=== PATIENT | female | born 1945 | race Caucasian/White ===

== ENCOUNTER 2019-01-04 12:51 | Emergency (ER) | payer MEDICARE ==
[~2019-01-04] VITALS: Ht 172.7 cm; Wt 70.3 kg
[~2019-01-04 12:51] MED LIST: AMLO5TAB4 PO; CELE200C PO; CIPR250T30 PO; CRESTOR10 MG PO; CYCL7.5T PO; DULO60CA6 PO; ESOM40CA25 PO; FERR325T14 PO; HYDR-2680 PO; HYDR-3164 PO; LORA2TAB PO; LOSA100T14 PO; OLME40TA12 PO; ONDA4TAB7 PO; OXYC10TA46 PO; OXYC1TAB6 PO; Oxycodone Hcl/Acetaminophen PO; PANT20TA2 PO; POLY17PO29 PO; PROC10TA57 PO; SUCR1TAB35 PO; TRAZ-118 PO; WARF-78 PO; WARF6TAB47 PO; Warfarin Sodium MC; ZOLP10TA4 PO; ZOLP6.252 PO
[2019-01-04] MEDS ORDERED: MORPHINE SULFATE 4 MG/ML VIAL. IV ONE ×2 (14:15)
[2019-01-04] MEDS ORDERED: ONDANSETRON PF 4 MG/2 ML VIAL. IV ONE (14:15)
[2019-01-04 14:22] LABS: BASO # 0.1 x10^3/uL (0.0-0.2); BASO % 1 % (0-3); EOS # 0.1 x10^3/uL (0.0-0.7); EOS % 1 % (0-3); HEMATOCRIT 38.2 % (36.0-47.0); HEMOGLOBIN 13.3 g/dL (12.0-15.5); LYMPH # 2.8 x10^3/uL (1.0-4.8); LYMPH % 36 % (24-48); MEAN CORPUSCULAR HEMOGLOBIN 32 pg (25-35); MEAN CORPUSCULAR HGB CONC 35 g/dL (31-37); MEAN CORPUSCULAR VOLUME 91 fL (79-100); MONO # 0.5 x10^3/uL (0.0-1.1); MONO % 6 % (0-9); NEUT # 4.5 x10^3/uL (1.8-7.7); NEUT % 56 % (31-73); PLATELET COUNT 469 x10^3/uL (140-400); RED BLOOD COUNT 4.21 x10^6/uL (3.50-5.40); RED CELL DISTRIBUTION WIDTH 12.4 % (11.5-14.5)
[2019-01-04 14:24] LABS: BILIRUBIN,URINE NEGATIVE (NEG); CLARITY,URINE CLEAR; COLOR,URINE YELLOW; NITRITE,URINE NEGATIVE (NEG); PH,URINE 5.5; PROTEIN,URINE NEGATIVE (NEG-TRACE); UROBILINOGEN,URINE 0.2 mg/dL (0.2 mg/dL)
[2019-01-04 14:36] LABS: CALCIUM 9.9 mg/dL (8.5-10.1); CREATININE 0.5 mg/dL (0.6-1.0); GFR 121.3; POTASSIUM 4.1 mmol/L (3.5-5.1)
[2019-01-04 14:38] LABS: ALBUMIN 4.7 g/dL (3.4-5.0); ALBUMIN/GLOBULIN RATIO 1.6 (1.0-1.7); TOTAL BILIRUBIN 0.5 mg/dL (0.2-1.0); TOTAL PROTEIN 7.7 g/dL (6.4-8.2)
[2019-01-04 14:45] LABS: BACTERIA,URINE 0 /HPF (0-FEW); RBC,URINE 0 /HPF (0-2); SQUAMOUS EPITHELIAL CELL,UR OCC /LPF; WBC,URINE 0 /HPF (0-4)
[2019-01-04] MEDS ORDERED: CONTRAST GIVEN. MC PRN (15:30)
[2019-01-04] MEDS ORDERED: IOHEXOL 300 MG/ML 100ML VIAL. IV ONE (16:00)
--- NOTE | 2019-01-04 16:07 | RAD ---
Exam: CT abdomen and pelvis with IV contrast INDICATION: Abdominal pain TECHNIQUE: Sequential axial images through the abdomen and pelvis obtained following the administration of 75 mL of Omni view 300 IV contrast. Sagittal and coronal reformatted images were reconstructed from the axial data and reviewed. Comparisons: MRI abdomen November 30, 2018 FINDINGS: Heart size is normal. No pericardial effusion. Visualized lung bases are clear. No pleural effusion. Liver, pancreas, gallbladder and adrenals. Several calcified granulomata noted within the spleen. No perinephric inflammation or hydronephrosis. Several small bilateral renal calculi are noted, largest in the lower pole of the right kidney measuring 6 mm. No ureteral calculi are identified. Bladder is distended and appears thin-walled. Uterus is absent. No abnormal adnexal mass. Postsurgical changes of the rectum are again noted. Visualized portions of the large and small bowel are otherwise unremarkable. No obstruction. No free intra-abdominal air fluid. Abdominal aorta has normal course and caliber. No enlarged abdominal lymph nodes are identified. Sclerotic appearance of the left pubic symphysis with enlarged trabecula. No suspicious osseous lesions or acute fractures. IMPRESSION: 1. No acute process identified within the abdomen or pelvis to explain patient's pain. 2. Stable nephrolithiasis. No evidence for obstructive uropathy. 3. Stable sclerotic lesion at the left pubic symphysis. Exposure: One or more of the following in the visualized dose reduction techniques were utilized for this examination: 1. Automated exposure control 2. Adjustment of the MA and/or KV according to patient size 3. Use of iterative of reconstructive technique Electronically signed by: Mikayla Dominique MD (01/04/2019 4:04 PM) [facility]
[2019-01-04] MEDS ORDERED: IV NORMAL SALINE 1000ML BAG 1,000 ML IV ONE (16:30)
--- NOTE | 2019-01-04 16:44 | PHYS DOC ---
Past Medical History Past Medical History: Cancer, High Cholesterol, Hypertension Additional Past Medical Histor: H. Pylori, colon cancer, osteoarthritis, bowel obstruction Past Surgical History: Cholecystectomy, Colectomy, Hysterectomy, Knee Replacement, Tonsillectomy Additional Past Surgical Histo: hernia repair x 2 Alcohol Use: None Drug Use: None Adult General Chief Complaint Chief Complaint: WEAKNESS/GENERALIZED HPI HPI Patient is a 73 year old male presented to ER today for evaluation of her pain for several weeks. Patient was admitted here last month for the same problem, she had a gallbladder taken out and she was admitted due to pain, or found to be Constipation due to narcotics. Patient had a colonoscopy and EGD done by her GI doctor in August of this year and it was normal. She felt nauseous. Patient is currently on narcotic for pain control. SHe denies any fever, no chest pain, no trouble breathing. Review of Systems Review of Systems Constitutional: Denies fever or chills [] Eyes: Denies change in visual acuity, redness, or eye pain [] HENT: Denies nasal congestion or sore throat [] Respiratory: Denies cough or shortness of breath [] Cardiovascular: No additional information not addressed in HPI [] GI: Positive for abdominal pain, nausea, vomiting, NO bloody stools or diarrhea [] : Denies dysuria or hematuria [] Musculoskeletal: Denies back pain or joint pain [] Integument: Denies rash or skin lesions [] Neurologic: Denies headache, focal weakness or sensory changes [] Endocrine: Denies polyuria or polydipsia [] All other systems were reviewed and found to be within normal limits, except as documented in this note. Current Medications Current Medications Current Medications Medications (Trade) Dose Ordered Sig/Romina Start Time Stop Time Status Last Admin Dose Admin Info (CONTRAST GIVEN -- Rx MONITORING) 1 each PRN DAILY PRN 01/04/19 15:30 01/06/19 15:29 Iohexol (Omnipaque 300 Mg/ml) 100 ml 1X ONCE 01/04/19 16:00 01/04/19 16:01 DC 01/04/19 15:52 100 ML Morphine Sulfate (Morphine Sulfate) 4 mg 1X ONCE 01/04/19 14:15 01/04/19 14:19 DC 01/04/19 15:20 4 MG Ondansetron HCl (Zofran) 4 mg 1X ONCE 01/04/19 14:15 01/04/19 14:16 DC 01/04/19 14:17 4 MG Sodium Chloride 1,000 ml @ 1,000 mls/hr 1X ONCE 01/04/19 16:30 01/04/19 17:29 01/04/19 16:33 1,000 MLS/HR Allergies Allergies Allergies Coded Allergies Type Severity Reaction Last Updated Verified simvastatin Allergy Intermediate 11/16/18 Yes Physical Exam Physical Exam Constitutional: Well developed, well nourished, no acute distress, non-toxic appearance. [] HENT: Normocephalic, atraumatic, bilateral external ears normal, oropharynx moist, no oral exudates, nose normal. [] Eyes: PERRLA, EOMI, conjunctiva normal, no discharge. [] Neck: Normal range of motion, no tenderness, supple, no stridor. [] Cardiovascular:Heart rate regular rhythm, no murmur [] Lungs & Thorax: Bilateral breath sounds clear to auscultation [] Abdomen: Bowel sounds normal, soft, There is lower tenderness to palpation, no masses, no pulsatile masses. [] Skin: Warm, dry, no erythema, no rash. [] Back: No tenderness, no CVA tenderness. [] Extremities: No tenderness, no cyanosis, no clubbing, ROM intact, no edema. [] Neurologic: Alert and oriented X 3, normal motor function, normal sensory function, no focal deficits noted. [] Psychologic: Affect normal, judgement normal, mood normal. [] Current Patient Data Vital Signs Vital Signs Date Time Temp Pulse Resp B/P (MAP) Pulse Ox O2 Delivery O2 Flow Rate FiO2 01/04/19 16:35 89 18 87 01/04/19 15:20 Room Air 01/04/19 13:35 99.0 162/77 (105) 99.0 Lab Values Laboratory Tests Test 01/04/19 13:15 01/04/19 13:50 Urine Collection Type Unknown Urine Color Yellow Urine Clarity Clear Urine pH 5.5 Urine Specific [place] <=1.005 Urine Protein Negative mg/dL (NEG-TRACE) Urine Glucose (UA) Negative mg/dL (NEG) Urine Ketones (Stick) Negative mg/dL (NEG) Urine Blood Small (NEG) Urine Nitrite Negative (NEG) Urine Bilirubin Negative (NEG) Urine Urobilinogen Dipstick 0.2 mg/dL (0.2 mg/dL) Urine Leukocyte Esterase Negative (NEG) Urine RBC 0 /HPF (0-2) Urine WBC 0 /HPF (0-4) Urine Squamous Epithelial Cells Occ /LPF Urine Bacteria 0 /HPF (0-FEW) White Blood Count 8.0 x10^3/uL (4.0-11.0) Red Blood Count 4.21 x10^6/uL (3.50-5.40) Hemoglobin 13.3 g/dL (12.0-15.5) Hematocrit 38.2 % (36.0-47.0) Mean Corpuscular Volume 91 fL (79-100) Mean Corpuscular Hemoglobin 32 pg (25-35) Mean Corpuscular Hemoglobin Concent 35 g/dL (31-37) Red Cell Distribution Width 12.4 % (11.5-14.5) Platelet Count 469 x10^3/uL (140-400) H Neutrophils (%) (Auto) 56 % (31-73) Lymphocytes (%) (Auto) 36 % (24-48) Monocytes (%) (Auto) 6 % (0-9) Eosinophils (%) (Auto) 1 % (0-3) Basophils (%) (Auto) 1 % (0-3) Neutrophils # (Auto) 4.5 x10^3/uL (1.8-7.7) Lymphocytes # (Auto) 2.8 x10^3/uL (1.0-4.8) Monocytes # (Auto) 0.5 x10^3/uL (0.0-1.1) Eosinophils # (Auto) 0.1 x10^3/uL (0.0-0.7) Basophils # (Auto) 0.1 x10^3/uL (0.0-0.2) Sodium Level 123 mmol/L (136-145) L Potassium Level 4.1 mmol/L (3.5-5.1) Chloride Level 86 mmol/L (98-107) L Carbon Dioxide Level 24 mmol/L (21-32) Anion Gap 13 (6-14) Blood Urea Nitrogen 6 mg/dL (7-20) L Creatinine 0.5 mg/dL (0.6-1.0) L Estimated GFR (Cockcroft-Gault) 121.3 BUN/Creatinine Ratio 12 (6-20) Glucose Level 95 mg/dL (70-99) Calcium Level 9.9 mg/dL (8.5-10.1) Total Bilirubin 0.5 mg/dL (0.2-1.0) Aspartate Amino Transferase (AST) 26 U/L (15-37) Alanine Aminotransferase (ALT) 28 U/L (14-59) Alkaline Phosphatase 96 U/L (46-116) Total Protein 7.7 g/dL (6.4-8.2) Albumin 4.7 g/dL (3.4-5.0) Albumin/Globulin Ratio 1.6 (1.0-1.7) Lipase 68 U/L (73-393) L Laboratory Tests 01/04/19 13:50 Laboratory Tests 01/04/19 13:50 EKG EKG [] Radiology/Procedures Radiology/Procedures [][facility] [address] [place] [address] IMAGING REPORT Signed PATIENT: JUAN DANIEL ABDI ACCOUNT: [id number] : 1945 LOCATION: [address] [place] [address] AGE: 72 SEX: F EXAM STATUS: ADM IN ORD. PHYSICIAN: LAMAR VAUGHAN MD REASON: chronic upper abd pain, weight loss, unexplained pain after multiple tests PROCEDURE: CT ANGIOGRAPHY ABD AND PELVIS ADDENDUM Addendum: 9 mm small left adrenal nodule is again identified. Electronically signed by: Renato Akins MD (12/01/2018 9:47 AM) [facility] DICTATED AND SIGNED BY: RENATO AKINS MD DATE: 12/01/18 0947 CC: LAMAR VAUGHAN MD; BARRERA RODGERS MD; LNIO SUAZO MD ~ Examination: CT angiography abdomen pelvis HISTORY: History of upper abdominal pain, weight loss COMPARISON: CT of the abdomen pelvis from 11/16/2018 TECHNIQUE: Axial CT angiography images of the abdomen pelvis were performed with IV contrast. Coronal and sagittal 3-D MIP reformats are performed. Volumetric 3-D reformats of the abdominal aorta was performed. Exposure: One or more of the following individualized dose reduction techniques were utilized for this examination: 1. Automated exposure control 2. Adjustment of the mA and/or kV according to patient size 3. Use of iterative reconstruction technique FINDINGS: The bibasilar lungs are clear. No evidence of free air identified in the abdomen. The visualized liver, spleen demonstrates a few calcified granulomas. The gallbladder is mildly distended. The stomach is mildly distended. The visualized pancreas grossly appears unremarkable. The small bowel is nondilated. Moderate amount of feces and gas noted throughout the colon. Surgical changes identified in the distal colon region. No evidence of abdominal aortic aneurysm identified. Moderate aortic atherosclerosis. The celiac artery, superior mesenteric artery, inferior mesenteric artery are patent. The bilateral common iliac arteries, external and internal iliac arteries are patent. Moderate atherosclerotic calcification is identified in the bilateral internal iliac arteries and the abdominal aorta. The bilateral kidneys enhance symmetrically. Mild atherosclerotic calcifications identified at the origin of the right renal artery. 2 left renal arteries identified. Small cystic structures identified in the bilateral kidneys probably cysts. Punctate intrarenal collecting system calculi identified in the bilateral kidneys the largest measuring 8 mm on the right. Sclerotic density identified in the region of the left pubic bone and the superior left pubic ramus similar to prior exam. Moderate degenerative changes lumbar spine. IMPRESSION: 1. No evidence of abdominal aortic aneurysm. The celiac artery, superior mesenteric artery, inferior mesenteric artery and the bilateral renal arteries are patent. 2. Bilateral nephrolithiasis. 2. Sclerotic density identified in the left pubic bone and superior pubic ramus similar to prior exam could be Paget's disease or metastatic lesion. Bone scan follow-up can be considered. Electronically signed by: Renato Akins MD (12/01/2018 9:40 AM) [facility] DICTATED and SIGNED BY: RENATO AKINS MD DATE: 12/01/18 0940 Course & Med Decision Making Course & Med Decision Making Pertinent Labs and Imaging studies reviewed. (See chart for details) [] Dragon Disclaimer Dragon Disclaimer This electronic medical record was generated, in whole or in part, using a voice recognition dictation system. Departure Departure Impression: Primary Impression: Abdominal pain Disposition: 01 HOME, SELF-CARE Condition: STABLE Referrals: LAMAR VAUGHAN MD (PCP) FOLLOW UP WITH YOUR DOCTOR NEXT WEEK. Patient Instructions: Abdominal Pain LADONNA PALACIOS DO Jan 04, 2019 16:44
[2019-01-04 17:36] VITALS: BP 163/74
== END 2019-01-04 17:50 | disposition home or self-care (01) ==
LOC: ER 12:51
DX: R10.30 Lower abdominal pain, unspecified (principal); R11.2 Nausea with vomiting, unspecified; E78.00 Pure hypercholesterolemia, unspecified; I10 Essential (primary) hypertension; Z90.710 Acquired absence of both cervix and uterus; Z90.49 Acquired absence of other specified parts of digestive tract; Z90.89 Acquired absence of other organs; Z96.659 Presence of unspecified artificial knee joint; Z88.8 Allergy status to other drugs, medicaments and biological substances
CPT/HCPCS: 36415; 74177; 80053; 81001; 83690; 85025; 96361; 96374; 96375; 96376; 99285; J2270; J2405; J7030; Q9967

== ENCOUNTER 2020-12-26 11:26 | Emergency (ER) | payer OTHER, MEDICARE ==
[~2020-12-26] VITALS: Ht 172.7 cm; Wt 79.5 kg
[~2020-12-26 11:26] MED LIST changes: -WARF-78 PO; +WARF5TAB2 PO
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
[2020-12-26 13:00] LABS: BASO # 0.1 x10^3/uL (0.0-0.2); BASO % 1 % (0-3); EOS # 0.1 x10^3/uL (0.0-0.7); EOS % 1 % (0-3); HEMATOCRIT 43.1 % (36.0-47.0); HEMOGLOBIN 14.7 g/dL (12.0-15.5); LYMPH # 2.5 x10^3/uL (1.0-4.8); LYMPH % 29 % (24-48); MEAN CORPUSCULAR HEMOGLOBIN 32 pg (25-35); MEAN CORPUSCULAR HGB CONC 34 g/dL (31-37); MEAN CORPUSCULAR VOLUME 92 fL (79-100); MONO # 0.4 x10^3/uL (0.0-1.1); MONO % 4 % (0-9); NEUT # 5.5 x10^3/uL (1.8-7.7); NEUT % 65 % (31-73); PLATELET COUNT 485 x10^3/uL (140-400); RED BLOOD COUNT 4.66 x10^6/uL (3.50-5.40); RED CELL DISTRIBUTION WIDTH 13.3 % (11.5-14.5); WHITE BLOOD COUNT 8.6 x10^3/uL (4.0-11.0)
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
[2020-12-26 13:14] LABS: CALCIUM 9.5 mg/dL (8.5-10.1); CREATININE 0.7 mg/dL (0.6-1.0); GFR 81.8; POTASSIUM 3.9 mmol/L (3.5-5.1)
[2020-12-26 13:19] LABS: ALBUMIN 4.2 g/dL (3.4-5.0); ALBUMIN/GLOBULIN RATIO 1.4 (1.0-1.7); MAGNESIUM 2.1 mg/dL (1.8-2.4); TOTAL BILIRUBIN 0.3 mg/dL (0.2-1.0); TOTAL PROTEIN 7.2 g/dL (6.4-8.2)
--- NOTE | 2020-12-26 13:30 | RAD ---
PQRS Compliance Statement: One or more of the following individualized dose reduction techniques were utilized for this examinat ion: 1. Automated exposure control 2. Adjustment of the mA and/or kV according to patient size 3. Use of iterative reconstruction technique CT head and cervical spine without contrast 12/26/2020 12:03 PM INDICATION: Altered mental status COMPARISON: CT head 11/27/2011 TECHNIQUE: Multiple axial CT images of the head were obtained from skull base through the vertex with out intravenous contrast. Multiple axial CT images of the cervical spine were obtained without intrav enous contrast. Coronal and sagittal reformats are provided. FINDINGS: Head: Evaluation limited by motion. Ventricles, sulci and basal cisterns are within normal limits. There is no hydrocephalus. Carbajal-white matter differentiation is normal. There is no acute intracranial hemorrhage. There is no mass, mass e ffect or midline shift. Posterior fossa is normal in appearance. Visualized portions of the orbits are normal. Paranasal sinuses are well aerated. Mastoid air cells a re well aerated. Scalp and calvaria are normal. Cervical spine: Alignment of the cervical spine is normal. Skull base is intact. Craniocervical junction is normal in appearance. Atlantoaxial articulation is normal. Vertebral body heights are maintained without evidence for acute fracture. There is severe left-sided facet arthropathy at C2-C3. Severe left and moderate right facet arthropat hy at 4 with mild bilateral neuroforaminal stenosis. At C4-C5, there is a posterior disc osteophyte c omplex with moderate to severe bilateral facet arthropathy and mild uncovertebral joint disease resul ting in mild/moderate right and mild left neuroforaminal stenosis. At C5-C6, there is disc bulge with moderate facet arthropathy and mild uncovertebral joint disease resulting in mild bilateral neurofor aminal stenosis. There is moderate to severe facet arthropathy at C6-C7. There is no prevertebral soft tissue swelling. Thyroid gland is normal in appearance. 5 mm subpleural nodular opacity identified within the posterior right upper lobe, only partially profiled. IMPRESSION: 1. No acute intracranial hemorrhage. 2. No acute fracture or malalignment of the cervical spine. Mild cervical spondylosis. 3. 5 mm subpleural nodule identified along the posterior right upper lobe, only partially profiled. F leischner guidelines for incidentally detected pulmonary nodules suggests no routine follow-up for lo w risk patients and optional CT at 12 months for high risk patients with solid noncalcified pulmonary nodules less than 6 mm in size. Electronically signed by: Beatrice Fenton MD (12/26/2020 1:28 PM) [facility]
[2020-12-26] MEDS ORDERED: HYDROcodone/APAP 5/325MG 1 TAB TABLET PO ONE (14:00)
[2020-12-26 14:33] LABS: BILIRUBIN,URINE NEGATIVE (NEG); CLARITY,URINE CLEAR; COLOR,URINE YELLOW; NITRITE,URINE NEGATIVE (NEG); PH,URINE 7.5 (<5.0-8.0); PROTEIN,URINE NEGATIVE (NEG-TRACE)
[2020-12-26 14:46] LABS: BACTERIA,URINE FEW /HPF (0-FEW)
[2020-12-26 15:32] VITALS: BP 131/82
--- NOTE | 2020-12-26 16:35 | EKG ---
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
== END 2020-12-26 15:57 | disposition home or self-care (01) ==
LOC: ER 11:26
DX: R41.82 Altered mental status, unspecified (principal); R55 Syncope and collapse; R07.89 Other chest pain; G89.11 Acute pain due to trauma; E78.00 Pure hypercholesterolemia, unspecified; I10 Essential (primary) hypertension; W18.39XA Other fall on same level, initial encounter; Y93.89 Activity, other specified; Y92.89 Other specified places as the place of occurrence of the external cause; Y99.8 Other external cause status
CPT/HCPCS: 36415; 70450; 71045; 72125; 80053; 81001; 83735; 83880; 84484; 85025; 87086; 93005; 99285-25

== ENCOUNTER 2021-02-16 14:12 | Emergency (ER) | payer MEDICARE ==
[~2021-02-16] VITALS: Ht 167.6 cm; Wt 70.0 kg
--- NOTE | 2021-02-16 15:17 | PHYS DOC ---
Past Medical History Past Medical History: Cancer, High Cholesterol, Hypertension Additional Past Medical Histor: H. Pylori, colon cancer, osteoarthritis, bowel obstruction Past Surgical History: Cholecystectomy, Colectomy, Hysterectomy, Knee Replacement, Tonsillectomy Additional Past Surgical Histo: hernia repair x 2 Smoking Status: Current Every Day Smoker Alcohol Use: Occasionally Drug Use: None General Adult EDM: Chief Complaint: CONSTIPATION HPI: HPI: Patient is a 75 year old female with remote history of stage I colon cancer s/p colon resection, hysterectomy who presents with lower abdominal pain and constipation for 2 weeks. Associated with nausea but no vomiting. She did take a laxative and had a very small soft bowel movement a couple of days ago. Has not had any other bowel movements. No rectal bleeding. No fever/chills. Pain is in bilateral lower abdominal segments. States she has no history of SBO. She had a follow-up colonoscopy at earlier this summer that showed showed a large polyp that was removed. She denies any rectal pressure or pain. Review of Systems: Review of Systems: Constitutional: Denies fever or chills. [] Eyes: Denies change in visual acuity. [] HENT: Denies nasal congestion or sore throat. [] Respiratory: Denies cough or shortness of breath. [] Cardiovascular: Denies chest pain or edema. [] GI: Reports constipation abdominal pain and nausea. [] : Denies dysuria. [] Musculoskeletal: Denies back pain or joint pain. [] Integument: Denies rash. [] Neurologic: Denies headache, focal weakness or sensory changes. [] Endocrine: Denies polyuria or polydipsia. [] Lymphatic: Denies swollen glands. [] Psychiatric: Denies depression or anxiety. [] Heart Score: C/O Chest Pain: N/A Risk Factors: Risk Factors: DM, Current or recent (<one month) smoker, HTN, HLP, family history of CAD, obesity. Risk Scores: Score 0 - 3: 2.5% MACE over next 6 weeks - Discharge Home Score 4 - 6: 20.3% MACE over next 6 weeks - Admit for Clinical Observation Score 7 - 10: 72.7% MACE over next 6 weeks - Early Invasive Strategies Allergies: Allergies: Allergies Coded Allergies Type Severity Reaction Last Updated Verified simvastatin Allergy Intermediate 11/16/18 Yes Physical Exam: PE: Constitutional: Well developed, well nourished, no acute distress, non-toxic appearance. [] HENT: Normocephalic, atraumatic, bilateral external ears normal, oropharynx reynaldo st, no oral exudates, nose normal. [] Eyes: PERRLA, EOMI, conjunctiva normal, no discharge. [] Neck: Normal range of motion, no tenderness, supple, no stridor. [] Cardiovascular:Heart rate regular rhythm, no murmur [] Lungs & Thorax: Bilateral breath sounds clear to auscultation [] Abdomen: Slightly distended abdomen with tenderness in bilateral lower quadrants. Rectal: No stool or masses noted in the rectal vault. No evidence of blood or melena. [] Skin: Warm, dry, no erythema, no rash. [] Back: No tenderness, no CVA tenderness. [] Extremities: No tenderness, no cyanosis, no clubbing, ROM intact, no edema. [] Neurologic: Alert and oriented X 3, normal motor function, normal sensory function, no focal deficits noted. [] Psychologic: Affect normal, judgement normal, mood normal. [] EKG: EKG: [] Radiology/Procedures: Radiology/Procedures: [] Impression: [facility] [address] [place], [place] [id number] IMAGING REPORT Signed PATIENT: JUAN DANIEL ABDI ACCOUNT: [id number] : 1945 LOCATION: ER AGE: 75 SEX: F EXAM STATUS: REG ER ORD. PHYSICIAN: CURTIS HAND MD REASON: constipation, lower abd pain, hx colon ca s/p resction PROCEDURE: CT ABD PELV W/ IV CONTRST ONLY EXAMINATION: CT abdomen and pelvis with IV contrast. INDICATION:75 years, Female, constipation, lower abdominal pain, history of colon cancer, status post resection. TECHNIQUE: Axial CT images of the abdomen and pelvis were obtained. Coronal and sagittal reformatted performed. COMPARISON: 01/04/2019. Exposure: One or more of the following individualized dose reduction techniques were utilized for this examination: 1. Automated exposure control 2. Adjustment of the mA and/or kV according to patient size 3. Use of iterative reconstruction technique. FINDINGS: LOWER CHEST: Unremarkable ABDOMEN/PELVIS: Normal size and morphology of the liver with homogeneous enhancement. Subcentim eter hypodensity in the left hepatic lobe, too small to characterize. Focal fat infiltration adjacent to falciform ligament. Calcified granuloma in the right hepatic lobe. Layering cholelithiasis in the gallbladder. No biliary ductal dilation. Calcified granulomas in the spleen. Mildly atrophic pancreatic parenchyma. No adrenal nodule. No hydronephrosis in either kidney. Redemonstr ated multiple nonobstructing right nephrolithiasis, the largest in the lower pole measures 1.2 cm. Distal esophageal wall thickening, may relate to reflux esophagitis. No bowel obstruction. Normal appendix. Postsurgical changes of sigmoid resection. Extr katharina redundant colon with cecum and ileocecal valve seen within the left abdomen. Large amount of stool throughout the colon. Mild tortuous abdominal aorta with the mild aortoiliac atherosclerotic calcifications. No aortic dilation or narrowing. Mesenteric arteries and portal vein are patent. No pneumoperitoneum or ascites. No lymphadenopathy in the abdomen or pelvis by size criteria. Unremarkable urinary bladder. Uterus is not visualized. No suspicious pelvic masses. MUSCULOSKELETAL: No acute osseous process or suspicious lesion. Grade 1 anterolisthesis of L4 over L5. Multilevel degenerative changes in the spine. Small fat-containing and likely hernia. Similar diffuse cortical thickening with coarse trabeculations involving left pubic and ischial bones, suggesting of Paget changes. IMPRESSION: 1. No acute abnormality in the abdomen or pelvis. 2. Redundant colon with large amount of stool burden. 3. Similar multiple nonobstructing left nephrolithiasis. 4. Other chronic/incidental findings, as described above. Electronically signed by: Brando Kaur MD (02/16/2021 4:52 PM) [id number] DICTATED and SIGNED BY: BRANDO KAUR MD DATE: 02/16/21 [id number] Course & Med Decision Making: Course & Med Decision Making Pertinent Labs and Imaging studies reviewed. (See chart for details) Patient is 75-year-old female with a past surgical history of colon resection for stage I colon cancer, and hysterectomy who presents with 2 weeks of constipation, nausea, and lower abdominal pain. No evidence of rectal impaction on CARMELA. She is slightly distended and tender in the lower quadrants. Will obtain CT imaging to exclude mass/obstruction. 1517 CT shows large stool burden/constipation. No evidence of obstruction or other acute process. Discussed findings with patient. Will increase bowel regimen from MiraLAX 17 g once daily to 34 g twice daily as needed. We will continue her docusate and senna. If the increase MiraLAX does not yield results, she will try mag citrate as the next step. We will follow-up with her PCP Return precautions for worsening pain, fever/chills, or new onset vomiting. [id number] Dragon Disclaimer: Devin Disclaimer: This electronic medical record was generated, in whole or in part, using a voice recognition dictation system. Departure Departure Impression: Primary Impression: Constipation Disposition: HOME / SELF CARE / HOMELESS Condition: STABLE Referrals: LAMAR VAUGHAN MD (PCP) Please schedule follow-up appointment for next week with your PCP. Additional Instructions: Your CT scan showed constipation. It did not show a cause for your constipation. Your labs looked good. Please increase your MiraLAX to 2 caps at a time. Take up to twice daily as needed to get desired results. If in 2 days, you still have not had a stool please consider using mag citrate as the next step. Please follow-up with your PCP early next week. If you develop severe abdominal pain, vomiting, fever/chills, or other new/concerning symptoms please return to the emergency department for reevaluation peer CURTIS HAND MD Feb 16, 2021 15:17
[2021-02-16 16:01] LABS: BASO # 0.1 x10^3/uL (0.0-0.2); BASO % 1 % (0-3); EOS % 1 % (0-3); HEMOGLOBIN 14.2 g/dL (12.0-15.5); LYMPH # 2.5 x10^3/uL (1.0-4.8); LYMPH % 38 % (24-48); MEAN CORPUSCULAR HEMOGLOBIN 32 pg (25-35); MEAN CORPUSCULAR HGB CONC 35 g/dL (31-37); MEAN CORPUSCULAR VOLUME 91 fL (79-100); MONO # 0.3 x10^3/uL (0.0-1.1); MONO % 5 % (0-9); NEUT # 3.7 x10^3/uL (1.8-7.7); NEUT % 56 % (31-73); PLATELET COUNT 495 x10^3/uL (140-400); RED CELL DISTRIBUTION WIDTH 12.9 % (11.5-14.5); WHITE BLOOD COUNT 6.7 x10^3/uL (4.0-11.0)
[2021-02-16 16:10] LABS: CALCIUM 9.5 mg/dL (8.5-10.1); CREATININE 0.7 mg/dL (0.6-1.0); GFR 81.8; POTASSIUM 3.5 mmol/L (3.5-5.1)
[2021-02-16] MEDS ORDERED: IOHEXOL 300 MG/ML 100ML VIAL. IV ONE (16:30)
[2021-02-16] MEDS ORDERED: CONTRAST GIVEN. MC PRN (16:30)
[2021-02-16] MEDS ORDERED: KETOROLAC 15 MG/ML VIAL. IVP ONE (16:45)
--- NOTE | 2021-02-16 16:54 | RAD ---
EXAMINATION: CT abdomen and pelvis with IV contrast. INDICATION:75 years, Female, constipation, lower abdominal pain, history of colon cancer, status post resection. TECHNIQUE: Axial CT images of the abdomen and pelvis were obtained. Coronal and sagittal reformatted performed. COMPARISON: 01/04/2019. Exposure: One or more of the following individualized dose reduction techniques were utilized for thi s examination: 1. Automated exposure control 2. Adjustment of the mA and/or kV according to patient size 3. Use of iterative reconstruction technique. FINDINGS: LOWER CHEST: Unremarkable ABDOMEN/PELVIS: Normal size and morphology of the liver with homogeneous enhancement. Subcentimeter hypodensity in th e left hepatic lobe, too small to characterize. Focal fat infiltration adjacent to falciform ligament . Calcified granuloma in the right hepatic lobe. Layering cholelithiasis in the gallbladder. No bilia ry ductal dilation. Calcified granulomas in the spleen. Mildly atrophic pancreatic parenchyma. No adr enal nodule. No hydronephrosis in either kidney. Redemonstrated multiple nonobstructing right nephrol ithiasis, the largest in the lower pole measures 1.2 cm. Distal esophageal wall thickening, may relate to reflux esophagitis. No bowel obstruction. Normal renetta endix. Postsurgical changes of sigmoid resection. Extremely redundant colon with cecum and ileocecal valve seen within the left abdomen. Large amount of stool throughout the colon. Mild tortuous abdominal aorta with the mild aortoiliac atherosclerotic calcifications. No aortic dila tion or narrowing. Mesenteric arteries and portal vein are patent. No pneumoperitoneum or ascites. No lymphadenopathy in the abdomen or pelvis by size criteria. Unremarkable urinary bladder. Uterus is n ot visualized. No suspicious pelvic masses. MUSCULOSKELETAL: No acute osseous process or suspicious lesion. Grade 1 anterolisthesis of L4 over L5. Multilevel dege nerative changes in the spine. Small fat-containing and likely hernia. Similar diffuse cortical thi ckening with coarse trabeculations involving left pubic and ischial bones, suggesting of Paget change s. IMPRESSION: 1. No acute abnormality in the abdomen or pelvis. 2. Redundant colon with large amount of stool burden. 3. Similar multiple nonobstructing left nephrolithiasis. 4. Other chronic/incidental findings, as described above. Electronically signed by: Yomaira Kaur MD (02/16/2021 4:52 PM) [id number]
[2021-02-16] MEDS ORDERED: POLYETHYLENE GLYCOL 3350 17 GM PACKET. PO SCH (17:00)
[2021-02-16 17:20] VITALS: BP 143/73
== END 2021-02-16 17:20 | disposition home or self-care (01) ==
LOC: ER 14:12
DX: K59.00 Constipation, unspecified (principal); E78.00 Pure hypercholesterolemia, unspecified; I10 Essential (primary) hypertension; F17.200 Nicotine dependence, unspecified, uncomplicated; Z90.710 Acquired absence of both cervix and uterus; Z90.49 Acquired absence of other specified parts of digestive tract; Z98.890 Other specified postprocedural states; Z88.8 Allergy status to other drugs, medicaments and biological substances
CPT/HCPCS: 36415; 74177; 80048; 83735; 85025; 96374; 99285; J1885; Q9967